=== PATIENT | female | born 1975 | race Caucasian/White ===

== ENCOUNTER 2020-06-26 13:46 | Emergency (ER) | payer MEDICAID, OTHER ==
[~2020-06-26] VITALS: Ht 149.9 cm; Wt 60.1 kg
[2020-06-26 16:56] VITALS: BP 99/70
== END 2020-06-26 16:33 | disposition home or self-care (01) ==
LOC: ER 13:47
DX: S62.660A Nondisplaced fracture of distal phalanx of right index finger, initial encounter for closed fracture (principal); S06.0X1A Concussion with loss of consciousness of 30 minutes or less, initial encounter; R07.9 Chest pain, unspecified; V89.2XXA Person injured in unspecified motor-vehicle accident, traffic, initial encounter; Y93.89 Activity, other specified; Y92.89 Other specified places as the place of occurrence of the external cause; Y99.8 Other external cause status
CPT/HCPCS: 29130; 71046; 73140; 93005; 99284

== ENCOUNTER 2020-08-29 15:55 | Emergency (ER) | payer OTHER ==
[~2020-08-29] VITALS: Ht 149.9 cm; Wt 59.1 kg
[2020-08-29 16:00] VITALS: BP 98/64
[2020-08-29] MEDS ORDERED: TETanus/Pertussis (Acell)/Diphther VAC/PF (Tdap-Adult) 0.5ml syringe IMVAC ONE (17:05)
== END 2020-08-29 17:30 | disposition home or self-care (01) ==
LOC: ER 15:55
DX: S01.01XA Laceration without foreign body of scalp, initial encounter (principal); W18.39XA Other fall on same level, initial encounter; Y93.89 Activity, other specified; Y92.89 Other specified places as the place of occurrence of the external cause; Y99.8 Other external cause status
CPT/HCPCS: 90471; 90715; 99283

== ENCOUNTER 2022-12-15 09:16 | Emergency (ER) | payer SELFPAY ==
[~2022-12-15] VITALS: Ht 149.9 cm; Wt 62.0 kg
[2022-12-15 09:19] VITALS: BP 147/93
== END 2022-12-15 10:49 | disposition left against medical advice (07) ==
LOC: ER 09:16
DX: F41.9 Anxiety disorder, unspecified (principal); Z53.21 Procedure and treatment not carried out due to patient leaving prior to being seen by health care provider
CPT/HCPCS: 99281